=== PATIENT | female | born 1950 | race Caucasian/White ===

== ENCOUNTER 2018-08-06 11:31 | Observation (INO) | payer MEDICARE, OTHER, SELFPAY ==
[2018-08-06] VITALS (8 sets, daily range): BP systolic 135–159; BP diastolic 62–84; PULSE 60–90; RESP 16–17; TEMP 36.6–37.3; O2SAT 95–100; BMI 31.6; BMI 29.0
--- NOTE | 2018-08-06 11:43 | US_ITS ---
STUDY: ABDOMINAL ULTRASOUND - RIGHT UPPER QUADRANT REASON FOR VISIT: Female, 67 years old. Abdominal pain. History of cholelithiasis. TECHNIQUE: Ultrasound evaluation of the right upper quadrant was performed with real-time and static willis-scale imaging. TECHNICAL QUALITY: Adequate. COMPARISON: None. FINDINGS: Liver: The liver measures 17.5 cm. There is increased echogenicity consistent with fatty infiltration. The bile ducts are within normal limits. There is hepatic color flow. The direction of portal flow is hepatopetal. There is no demonstrated mass lesion. Gallbladder: Normal distended gallbladder. The gallbladder wall measures 3.2 mm. There is a positive sonographic Young's sign. There is no pericholecystic fluid. There are multiple echogenic structures within the gallbladder, consistent with multiple gallstones. There is sludge. Common Bile Duct (C.B.D.): The common bile duct measures 7 mm. Pancreas: Normal size of the head, body and tail of the pancreas. There is normal echogenicity of the pancreas. There is no demonstrated pancreatic mass or cyst. Right Kidney: Normal size of the right kidney. The right kidney measures 10.2 cm. Normal renal cortex. The right cortex measures 2.0 cm. There is no demonstrated renal mass or cyst. There is no right hydronephrosis. US/Gallbladder IMPRESSION: Gallstones and positive Young's sign with a slightly thickened gallbladder wall. Findings are consistent with cholecystitis. Mildly dilated common bile duct. Electronically Signed: Harish Gonzalez MD at 13:16 EST , Service support ,
[2018-08-06] MEDS: Morphine 4 MG/ML Syringe IV ×2 (11:59→13:51)
[2018-08-06] MEDS: 0.9% Normal Saline 1,000 ML 1000 ML IV (11:59)
[2018-08-06] MEDS: Ondansetron 4 MG/2 ML Vial IV (11:59)
[2018-08-06 12:00] LABS: Absolute Lymphocyte Count 0.78 X10^3/ul (0.83-4.51); Absolute Neutrophil Count 13.5 X10^3/uL (2.0-7.7); Basophil# 0.03 X10^3/uL; Basophil% 0.2 % (0-1); Hematocrit 40.9 % (37-47); Hemoglobin 13.9 g/dl (12.0-15.0); Lymphocyte # 0.78 X10^3/ul (4.0); Lymphocyte % 5.1 % (19-41); Mean Corpuscular Hgb 29.8 pg (27.0-32.0); Mean Corpuscular Volume 87.8 fL (81-99); Monocyte# 0.87 X10^3/uL; Monocyte% 5.7 % (0-10); Neutrophil % 88.9 % (47-70); Platelet Count 303 K/mm3 (150-450); RBC Distribution Width CV 12.6 % (11.6-14.6); RBC Distribution Width SD 40.4 fl (35.1-43.9); Red Blood Count 4.66 M/mm3 (4.2-5.4); White Blood Count 15.2 K/mm3 (4.4-11.0)
[2018-08-06 12:02] LABS: POSITIVE COUNT NO; POSITIVE DIFFERENTIAL NO; POSITIVE MORPHOLOGY NO
[2018-08-06 12:15] LABS: AST(SGOT) 14 U/L (15-37); Alanine Aminotransfer ALT/SGPT 23 U/L (13-56); Albumin, Serum 3.8 g/dL (3.2-5.0); Alkaline Phosphatase 77 U/L (45-117); Anion Gap 10 (5-15); BUN 9 mg/dL (7-18); BUN/Creat Ratio 11.8 RATIO (10-20); Calcium,Total 8.7 mg/dL (8.5-10.1); Chloride 102 mmol/L (98-107); Creatinine, Serum 0.76 mg/dL (0.55-1.02); EST Glomerular Filtration Rate 80 mL/min (>60); Est Glom Filt Rate - Afr Amer 97 mL/min (>60); Estimated Creatinine Clearance 48.45 ml/min; Globulin 3.5 g/dL (2.2-4.2); Glucose 156 mg/dL (74-106); Lipase 297 U/L (73-393); Potassium 3.9 mmol/L (3.5-5.1); Protein, Total 7.3 g/dL (6.4-8.2); Sodium Level 136 mmol/L (136-145)
--- NOTE | 2018-08-06 12:18 | ED.VISSUMM ---
- ER Visit Summary Date of Service: 08/06/18 Chief Complaint: Abdominal pain, nausea, vomiting History of Present Illness: The patient is a 67 F who is otherwise healthy presents to the emergency department with midepigastric pain into her right upper quadrant along with nausea and vomiting. The patient does have a history of gallstones. She states that she was diagnosed with these in May. She was seen at [facility]. She states that she changed her diet and has not had to have any surgery. She states last night, she was eating a cheddar popcorn. Her also ate it. She states shortly after, they were both nauseated. She states her symptoms worsen and she had more pain. She began to vomit and states that she is vomited approximately 10 times. It was nonbloody and nonbilious. The patient is otherwise healthy. She takes no daily medications. She has had prior hysterectomy, but no other abdominal surgery. Physical Examination: Vital signs reviewed General: Well-nourished, well-developed Head: Normocephalic, atraumatic Eyes: Pupils equal and reactive, extraocular muscles intact Neck, supple, no lymphadenopathy Heart: Regular rate and rhythm Respiratory: No distress, clear bilaterally Abdomen: Soft, nontender, nondistended, no peritoneal signs Back: Nontender Extremities: Nontender, no edema, no cords Skin: Normal color no rash Neuro: Alert and oriented, no focal or lateralizing deficits Test Results: [] Emergency Department Course and Treatment: The patient presents with midepigastric pain in the right upper quadrant. She was tender to palpation. IV was established. She was given analgesics and antiemetics with some improvement, but still had persistent symptoms. Screening labs do demonstrate a leukocytosis, but her LFTs were normal. Patient underwent ultrasound which is concerning for acute cholecystitis. I did discuss the patient with Dr. Gomez. She will evaluate the patient for admission in the emergency department. The patient was covered with broad-spectrum antibiotics and redosed with analgesics. Treatment Plan: [] Disposition: Admission Impression: 1. Acute cholecystitis This note was generated with [employer] dictation software. It may contain incorrect words, spelling, and punctuation that were not noted in review of the chart prior to signing ED Disposition - Plan for ED Patient: Chief Complaint: Abd Pain Referrals: Reynold Gu [Primary Care Provider] -
--- NOTE | 2018-08-06 13:25 | RAD_ITS ---
STUDY: X-RAY CHEST REASON FOR EXAM: Female, 67 years old. Right upper quadrant pain. TECHNIQUE: Single frontal view of the chest. COMPARISON: None. FINDINGS: The lungs are mildly hyperexpanded. There is no demonstrated pleural abnormality. There is borderline cardiomegaly. Normal mediastinum and go. Normal visualized pulmonary arteries. Normal visualized aortic arch and descending thoracic aorta. Normal visualized thoracic spine. Normal visualized ribs, clavicles, and shoulders. There is no demonstrated abnormality of the visualized soft tissue structures of the upper abdomen. RAD/Chest 1 View (Portable) IMPRESSION: Borderline cardiomegaly with mild hyperexpansion. No acute pathology. Electronically Signed: Aren Mcfarland MD at 14:11 EST , Service support ,
--- NOTE | 2018-08-06 13:25 | EKG12_ITS ---
Test Reason : PRE-OP Blood Pressure : / mmHG Vent. Rate : 070 BPM Atrial Rate : 070 BPM P-R Int : 148 ms QRS Dur : 094 ms QT Int : 398 ms P-R-T Axes : 058 -48 034 degrees QTc Int : 429 ms Normal sinus rhythm Left anterior fascicular block Poor R wave progression Minimal voltage criteria for LVH, may be normal variant Abnormal ECG Confirmed by MARILYN LAUGHLIN, ÁNGELA ([id number]), society editor HORACIO FORTE ([id number]) on 08/08/2018 12:40:45 PM Referred By: STEVIE Confirmed By:ÁNGELA SANDERS MD
[2018-08-06 13:43] LABS: International Normalized Ratio 0.9; Prothrombin Time (Protime)PT. 12.6 SECONDS (11.7-14.9)
--- NOTE | 2018-08-06 13:58 | PCM.HP.STD ---
History of Present Illness Date of Admission: 08/06/18 The patient is a 67 year old F presented to the ER due to nausea vomiting right upper quadrant pain that started about 8 PM last night after eating some popcorn. Patient states the pain continued to get worse. In the ER patient had a white blood cell count of 15.2, ultrasound the gallbladder did show some wall thickening at 3.2 mm their official reports there is no pericholecystic fluid however I do think there is some pericholecystic fluid on the ultrasound, multiple gallstones. Patient last ate last night along with having a bowel movement last night which was normal. Patient did know that she had gallstones however she has not had an issue with them previously. Patient denies any past medical history or any medications at home. 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 Lives: Spouse/ Significant Other Smoking Status: Never smoker - *Family History Maternal History Items: No pertinent history Review of Systems Constitutional: Reports: Anorexia, Chills Eyes: Denies: Blurred vision HEENT: Denies: Difficulty Swallowing Cardiovascular: Denies: Chest Pain Respiratory: Denies: Shortness of breath at rest Gastrointestinal: Reports: Abdominal Pain, Nausea, Vomiting Genitourinary: Denies: Dysuria VTE Information - Inpt Only VTE Present on Admission: Yes VTE Mechan Device Prophylaxis: SCD's - Physical Exam General: Alert, Oriented x3, Cooperative, No apparent distress HEENT: Atraumatic Lungs: Normal air movement Cardiovascular: Regular rate Abdomen: Soft, Non-Distended, Tender - Right upper quadrant, no peritoneal signs Extremities: No clubbing, No cyanosis, No edema Neurological: Cranial nerves II-XII grossly intact Psych/Mental Status: Normal Affect Vital Signs Temp Pulse Resp BP Pulse Ox 98.1 F 90 17 159/84 H 100 08/06/18 11:32 08/06/18 11:32 08/06/18 11:32 08/06/18 11:32 08/06/18 11:32 Oxygen Delivery Method Room Air Weight: 190 lb Body Mass Index (BMI) 31.6 Laboratory Tests Past 24 Hrs 12/08/06/18 08/06/18 11:53 11:53 11:53 WBC 15.2 H RBC 4.66 Hgb 13.9 Hct 40.9 MCV 87.8 MCH 29.8 MCHC 34.0 RDW 12.6 RDW Differential 40.4 Plt Count 303 MPV 10.0 Immature Gran % (Auto) 0.100 Neut % (Auto) 88.9 H Lymph % (Auto) 5.1 L [place] % (Auto) 5.7 Eos % (Auto) 0.0 Baso % (Auto) 0.2 Absolute Neuts (auto) 13.5 H Absolute Lymphs (auto) 0.78 L Total Counted Not Reportable PT 12.6 INR 0.9 APTT 29.0 Sodium 136 Potassium 3.9 Chloride 102 Carbon Dioxide 24.0 Anion Gap 10 BUN 9 Creatinine 0.76 Estim Creat Clear Calc 48.45 Est GFR (MDRD) Af Amer 97 Est GFR (MDRD) Non-Af 80 BUN/Creatinine Ratio 11.8 Glucose 156 H Calcium 8.7 Total Bilirubin 0.80 Direct Bilirubin 0.20 AST 14 L ALT 23 Alkaline Phosphatase 77 Total Protein 7.3 Albumin 3.8 Globulin 3.5 Lipase 297 Assessment/Plan 67-year-old female with acute cholecystitis 1. Discussed procedure laparoscopic cholecystectomy with cholangiograms, possible open along with the risk but not limited to bleeding, infection, bile leak/retained stones which would require an ERCP, injury to another organ (small bowel, bile ducts, etc.) which may require transfer to tertiary hospital, hernia at incision sites, and anesthesia. Patient and her no further questions at this time. Sheri Gomez M.D. Pager: [phone] [facility] [address] [place] [address], [address] [place] [address] Office: [phone]
--- NOTE | 2018-08-06 14:02 | HP.PCM_ITS ---
History of Present Illness Date of Admission: 08/06/18 The patient is a 67 year old F presented to the ER due to nausea vomiting right upper quadrant pain that started about 8 PM last night after eating some popcorn. Patient states the pain continued to get worse. In the ER patient had a white blood cell count of 15.2, ultrasound the gallbladder did show some wall thickening at 3.2 mm their official reports there is no pericholecystic fluid however I do think there is some pericholecystic fluid on the ultrasound, multiple gallstones. Patient last ate last night along with having a bowel movement last night which was normal. Patient did know that she had gallstones however she has not had an issue with them previously. Patient denies any past medical history or any medications at home. 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 Lives: Spouse/ Significant Other Smoking Status: Never smoker - *Family History Maternal History Items: No pertinent history Review of Systems Constitutional: Reports: Anorexia, Chills Eyes: Denies: Blurred vision HEENT: Denies: Difficulty Swallowing Cardiovascular: Denies: Chest Pain Respiratory: Denies: Shortness of breath at rest Gastrointestinal: Reports: Abdominal Pain, Nausea, Vomiting Genitourinary: Denies: Dysuria VTE Information - Inpt Only VTE Present on Admission: Yes VTE Mechan Device Prophylaxis: SCD's - Physical Exam General: Alert, Oriented x3, Cooperative, No apparent distress HEENT: Atraumatic Lungs: Normal air movement Cardiovascular: Regular rate Abdomen: Soft, Non-Distended, Tender - Right upper quadrant, no peritoneal signs Extremities: No clubbing, No cyanosis, No edema Neurological: Cranial nerves II-XII grossly intact Psych/Mental Status: Normal Affect Vital Signs Temp Pulse Resp BP Pulse Ox 98.1 F 90 17 159/84 H 100 08/06/18 11:32 08/06/18 11:32 08/06/18 11:32 08/06/18 11:32 08/06/18 11:32 Oxygen Delivery Method Room Air Weight: 190 lb Body Mass Index (BMI) 31.6 Laboratory Tests Past 24 Hrs 12/08/06/18 08/06/18 11:53 11:53 11:53 WBC 15.2 H RBC 4.66 Hgb 13.9 Hct 40.9 MCV 87.8 MCH 29.8 MCHC 34.0 RDW 12.6 RDW Differential 40.4 Plt Count 303 MPV 10.0 Immature Gran % (Auto) 0.100 Neut % (Auto) 88.9 H Lymph % (Auto) 5.1 L [place] % (Auto) 5.7 Eos % (Auto) 0.0 Baso % (Auto) 0.2 Absolute Neuts (auto) 13.5 H Absolute Lymphs (auto) 0.78 L Total Counted Not Reportable PT 12.6 INR 0.9 APTT 29.0 Sodium 136 Potassium 3.9 Chloride 102 Carbon Dioxide 24.0 Anion Gap 10 BUN 9 Creatinine 0.76 Estim Creat Clear Calc 48.45 Est GFR (MDRD) Af Amer 97 Est GFR (MDRD) Non-Af 80 BUN/Creatinine Ratio 11.8 Glucose 156 H Calcium 8.7 Total Bilirubin 0.80 Direct Bilirubin 0.20 AST 14 L ALT 23 Alkaline Phosphatase 77 Total Protein 7.3 Albumin 3.8 Globulin 3.5 Lipase 297 Assessment/Plan 67-year-old female with acute cholecystitis 1. Discussed procedure laparoscopic cholecystectomy with cholangiograms, possible open along with the risk but not limited to bleeding, infection, bile leak/retained stones which would require an ERCP, injury to another organ (small bowel, bile ducts, etc.) which may require transfer to tertiary hospital, hernia at incision sites, and anesthesia. Patient and her no further questions at this time. Sheri Gomez M.D. Pager: [phone] [facility] [address] [place] [address], [address] [place] [address] Office: [phone]
[2018-08-06 14:27] LABS: Bacteria 0 SEEN /hpf (None Seen); Mucous, Urine 0 SEEN /hpf (<or=2+)
[2018-08-06 14:28] LABS: Color, Urine Yellow (Yellow); Glucose, Dipstick Normal (Normal); Ketone-Dipstick 50 mg/dl (Negative); Leukocyte Esterase-Dipstick Negative /ul (Negative); Nitrite-Dipstick Negative (Negative); Occult Blood-Urine 10 /ul (Negative); Protein-Dipstick 15 mg/dl (Negative); Specific Gravity, Urine 1.015 (1.002-1.030); Urine Bilirubin Dipstick Negative (Negative); Urine Clarity Clear (Clear); Urine Urobilinogen Normal (Normal)
[2018-08-06 14:41] LABS: Red Blood Cells-Urine 0-5 SEEN /hpf (0-5); Squamous Epithelial Cells - UA 0-5 SEEN /hpf (5-10); White Blood Cells 0-5 SEEN /hpf (0-5)
--- NOTE | 2018-08-06 15:00 | GALL_PTH ---
PATIENT: ELAINA DE LA TORRE LOC: MS3 U#:[id number] AGE/SX: 67/F ROOM: RI306 RE08/06/[address]: Dr. Sheri Gomez MD : 1950 BED: 1 DIS: 08/07/2018 SPEC #: [id number] RECD: 08/08/18 10:30 STATUS: INEZ RESandy #: [id number] MARIALUISA: 08/06/18 15:[address]: Sheri Gomez DEPT: SURGICAL PATHOLOGY RECD BY: John Sanchez ENTERED: 08/08/18 11:54 SP TYPE: RUSS SHORT DR: Dr. Reynold Gu DO Tissues: Gallbladder, NOS Procedures: Surgery Specimen Level III HEADER OPERATION: Laparoscopic cholecystectomy with IOC PRE-OP DIAGNOSIS: Acute cholelithiasis TISSUE SUBMITTED: Gallbladder MICROSCOPIC DIAGNOSIS Gallbladder: Acute and chronic ulcerated cholecystitis and cholelithiasis. Mild epithelial atypia, favor reactive. SJ:tiffanie 08/10/18 COMMENT Case has been reviewed in consultation with Dr. Estrada who concurs with the above diagnosis. IDC:AM MICROSCOPIC DESCRIPTION Slides are reviewed. GROSS DESCRIPTION Received is one container labeled with the patient's name and designated gallbladder. The specimen consists of a gallbladder measuring 10 x 4 x 3.5 cm. The external surface is smooth and glistening. Focally, it is granular, hemorrhagic and contains cautery artifact. The lumen of the gallbladder contains yellow-green mucoid bile and three salazar-black stones ranging in size from 0.7 to 1.5 cm. The mucosa is bile-stained and without any mass lesions. The gallbladder wall averages 0.3 cm in thickness and is free of mass lesions. Metal Cabinet Finisher sections of the gallbladder and the cystic duct are submitted in one cassette. / AM:tiffanie 08/08/18 More sections are submitted in three more cassettes, 2-4. / SJ:tiffanie 08/10/18 TC:2 CPT: 32888
[2018-08-06] MEDS: Bupivacaine 0.5% PF 10 ML VIAL (16:13)
--- NOTE | 2018-08-06 16:17 | PCM.OPRPT ---
Report of Operation Date of Procedure: 08/06/18 Pre-Operative Diagnosis: Acute cholecystitis Post-Operative Diagnosis: Acute cholecystitis, hydrops of the gallbladder Surgery/Procedure Performed:: Laparoscopic cholecystectomy Type of Anesthesia:: General/Supplemental Anesthesiologist: Rhoda Pride Special Medications: Zosyn 4.5 g IV x1 Specimen's removed: Gallbladder and stones Estimated Blood Loss (mL): <40cc Fluids Replaced: 1000 cc Description of Procedure: Indications this is a 67 year-old female who developed abdominal pain/nausea/vomiting and on workup was found to have cholelithiasis, acute cholecystitis with a normal liver function enzymes. Laparoscopic cholecystectomy was elected. Description procedure: The patient was placed on operating table in supine position. General Anesthesia was induced. A timeout was completed verifying correct patient, procedure, site, position, social, and special equipment prior to beginning procedure. An orogastric tube was placed. The abdomen was prepped and draped in usual sterile fashion. An incision was made in the natural skin line above the umbilicus. The fascia was elevated and incised. The peritoneum was elevated and incised. Entry into the peritoneum was confirmed visually and no bowel was noted in the vicinity of the incision. Meredith trocar was placed. The abdomen was insufflated with carbon dioxide to a pressure of 12-15 mmHg. Patient tolerated insufflation well. The laparoscope was then inserted and abdomen inspected. No injuries from initial trocar placement were noted. Additional trochars were then inserted in the following locations 5 mm trocar in the epigastrium and 2 more 5 mm trochars along the right costal margin. The abdomen was inspected no abnormalities were found. The table is placed in reverse Trendelenburg position with the right side up. The gallbladder was noted to be very tense and was decompressed with a decompression needle. White fluid was suctioned from the gallbladder. The adhesions between the gallbladder and omentum were removed with gentle traction as the gallbladder did have a bit of edema surrounding. The dome of the gallbladder was grasped with atraumatic grasper passed through the lateral port and retracted over the dome of the liver. Infundibulum was then grasped with atraumatic grasper through the midclavicular port and retracted to the right lower quadrant. This maneuver exposed Calot's triangle. The peritoneum overlying the gallbladder infundibulum was then incised and cystic duct and artery identified and circumferentially dissected. Unable to do cholangiograms Dominguez catheter due to a stone at the neck of the gallbladder, also unable to place a Ranfac catheter cholangiograms were not completed. But the cystic duct and artery were clearly identified. The cystic duct and artery were then doubly clipped and divided close to the gallbladder. The gallbladder then dissected from its peritoneal attachments by electrocautery. Hemostasis was checked and the gallbladder and contained stones were removed using the endoscopic retrieval bag through the umbilical port. The gallbladder is passed off table as specimen. The gallbladder fossa was copiously irrigated with saline and hemostasis obtained. There is no evidence of bleeding from the gallbladder fossa or cystic artery leakage of bile from the cystic duct stump. Secondary trochars removed under direct vision. No bleeding was noted the trocar sites. The laparoscope was withdrawn and umbilical trocar removed. The abdomen was allowed to collapse. The fascia of the 12 mm trocar was closed with a [id number] 0 Vicryl suture. The skin was closed with sutures of 4-0 Monocryl and Steri-Strips. The orogastric tube was removed and the patient was extubated. The patient tolerated procedure well and was taken to the postanesthesia care unit in stable condition. - Complications none - Admit VTE Documentation VTE Present on Admission: Yes VTE Mechan Device Prophylaxis: SCD's VTE Pharm Prophylaxis ordered?: No Reason prophylaxis not ordered:: Treatment Not Indicated
[2018-08-06] MEDS: Lactated Ringers 1,000 ML 130 ML IV (19:05)
[2018-08-06] MEDS: Piperacil/Tazobactam 3.375 GM/50 ML ML IV (22:02)
[2018-08-07] MEDS: Lactated Ringers 1,000 ML 130 ML IV (02:47)
[2018-08-07] MEDS: HYDROcodone Bitartrate/Apap 5/325 Tablet PO (02:49)
[2018-08-07] MEDS: Piperacil/Tazobactam 3.375 GM/50 ML ML IV (05:42)
[2018-08-07 06:42] LABS: Absolute Lymphocyte Count 0.95 X10^3/ul (0.83-4.51); Absolute Neutrophil Count 9.9 X10^3/uL (2.0-7.7); Basophil# 0.01 X10^3/uL; Basophil% 0.1 % (0-1); Hematocrit 34.9 % (37-47); Hemoglobin 11.7 g/dl (12.0-15.0); Lymphocyte # 0.95 X10^3/ul (4.0); Lymphocyte % 7.8 % (19-41); Mean Corp Hgb Conc 33.5 g/gl (32-36); Mean Corpuscular Hgb 30.8 pg (27.0-32.0); Mean Corpuscular Volume 91.8 fL (81-99); Mean Platelet Vol. 11.2 fl (6.2-12.0); Monocyte# 1.28 X10^3/uL; Monocyte% 10.6 % (0-10); Neutrophil # 9.86 X10^3/uL (2.7-7.7); Neutrophil % 81.3 % (47-70); Platelet Count 238 K/mm3 (150-450); RBC Distribution Width CV 12.5 % (11.6-14.6); White Blood Count 12.1 K/mm3 (4.4-11.0)
[2018-08-07 06:48] LABS: POSITIVE COUNT NO; POSITIVE DIFFERENTIAL NO; POSITIVE MORPHOLOGY NO
[2018-08-07 07:07] LABS: ALB/GLOB Ratio 0.9 RATIO (0.9-2.4); AST(SGOT) 40 U/L (15-37); Alanine Aminotransfer ALT/SGPT 44 U/L (13-56); Albumin, Serum 2.7 g/dL (3.2-5.0); Alkaline Phosphatase 52 U/L (45-117); Anion Gap 7 (5-15); BUN 10 mg/dL (7-18); BUN/Creat Ratio 13.6 RATIO (10-20); Chloride 106 mmol/L (98-107); Creatinine, Serum 0.74 mg/dL (0.55-1.02); EST Glomerular Filtration Rate 83 mL/min (>60); Est Glom Filt Rate - Afr Amer 101 mL/min (>60); Estimated Creatinine Clearance 58.23 ml/min; Globulin 2.9 g/dL (2.2-4.2); Glucose 138 mg/dL (74-106); Potassium 4.5 mmol/L (3.5-5.1); Protein, Total 5.6 g/dL (6.4-8.2); Sodium Level 140 mmol/L (136-145)
[2018-08-07 07:25] VITALS: O2SAT 96
--- NOTE | 2018-08-07 07:39 | PN.SURG_ITS ---
Subjective: Patient is doing well, denies right upper quadrant pain like she had before surgery just has some tenderness near incisions, tolerating clears, ambulate to the bathroom, denies flatus - Physical Exam General: Alert, Oriented x3, Cooperative, No apparent distress HEENT: Atraumatic Lungs: Normal air movement Cardiovascular: Regular rate Abdomen: Soft, Non-Distended, Tender - Mild near incisions, dressed clean dry and intact Extremities: No clubbing, No cyanosis, No edema Vital Signs Temp Pulse Resp BP Pulse Ox 99.1 F 87 16 136/62 H 95 08/06/18 21:00 08/06/18 21:00 08/06/18 21:00 08/06/18 21:00 08/06/18 21:00 Oxygen Delivery Method Room Air Weight: 201 lb 15.095 oz Body Mass Index (BMI) 29.0 Intake and Output for Last 24 Hours 08/05/18 08/06/18 08/07/18 23:59 23:59 23:59 Intake Total 1700 / 1700 1980.7 / 1980.7 Output Total 1125 / 1125 Balance 1700 / 1700 855.7 / 855.7 Laboratory Tests Past 24 Hrs 08/06/18 08/06/18 08/06/18 11:53 11:53 11:53 WBC 15.2 H RBC 4.66 Hgb 13.9 Hct 40.9 MCV 87.8 MCH 29.8 MCHC 34.0 RDW 12.6 RDW Differential 40.4 Plt Count 303 MPV 10.0 Immature Gran % (Auto) 0.100 Neut % (Auto) 88.9 H Lymph % (Auto) 5.1 L [place] % (Auto) 5.7 Eos % (Auto) 0.0 Baso % (Auto) 0.2 Absolute Neuts (auto) 13.5 H Absolute Lymphs (auto) 0.78 L Total Counted Not Reportable PT 12.6 INR 0.9 APTT 29.0 Sodium 136 Potassium 3.9 Chloride 102 Carbon Dioxide 24.0 Anion Gap 10 BUN 9 Creatinine 0.76 Estim Creat Clear Calc 48.45 Est GFR (MDRD) Af Amer 97 Est GFR (MDRD) Non-Af 80 BUN/Creatinine Ratio 11.8 Glucose 156 H Calcium 8.7 Total Bilirubin 0.80 Direct Bilirubin 0.20 AST 14 L ALT 23 Alkaline Phosphatase 77 Total Protein 7.3 Albumin 3.8 Globulin 3.5 Albumin/Globulin Ratio Lipase 297 Urine Color Urine Clarity Urine pH Ur Specific [place] Urine Protein Urine Glucose (UA) Urine Ketones Urine Occult Blood Urine Nitrite Urine Bilirubin Urine Urobilinogen Ur Leukocyte Esterase Urine RBC Urine WBC Ur Squamous Epith Cells Urine Bacteria Urine Mucus Blood Type Antibody Screen 08/06/18 08/06/18 08/07/18 13:56 14:20 06:00 WBC 12.1 H RBC 3.80 L Hgb 11.7 L Hct 34.9 L MCV 91.8 MCH 30.8 MCHC 33.5 RDW 12.5 RDW Differential 41.0 Plt Count 238 MPV 11.2 Immature Gran % (Auto) 0.200 Neut % (Auto) 81.3 H Lymph % (Auto) 7.8 L [place] % (Auto) 10.6 H Eos % (Auto) 0.0 Baso % (Auto) 0.1 Absolute Neuts (auto) 9.9 H Absolute Lymphs (auto) 0.95 Total Counted Not Reportable PT INR APTT Sodium Potassium Chloride Carbon Dioxide Anion Gap BUN Creatinine Estim Creat Clear Calc Est GFR (MDRD) Af Amer Est GFR (MDRD) Non-Af BUN/Creatinine Ratio Glucose Calcium Total Bilirubin Direct Bilirubin AST ALT Alkaline Phosphatase Total Protein Albumin Globulin Albumin/Globulin Ratio Lipase Urine Color Yellow Urine Clarity Clear Urine pH 7.0 Ur Specific [place] 1.015 Urine Protein 15 H Urine Glucose (UA) Normal Urine Ketones 50 H Urine Occult Blood 10 H Urine Nitrite Negative Urine Bilirubin Negative Urine Urobilinogen Normal Ur Leukocyte Esterase Negative Urine RBC 0-5 SEEN Urine WBC 0-5 SEEN Ur Squamous Epith Cells 0-5 SEEN Urine Bacteria 0 SEEN Urine Mucus 0 SEEN Blood Type A POSITIVE Antibody Screen NEGATIVE 08/07/18 06:00 WBC RBC Hgb Hct MCV MCH MCHC RDW RDW Differential Plt Count MPV Immature Gran % (Auto) Neut % (Auto) Lymph % (Auto) [place] % (Auto) Eos % (Auto) Baso % (Auto) Absolute Neuts (auto) Absolute Lymphs (auto) Total Counted PT INR APTT Sodium 140 Potassium 4.5 Chloride 106 Carbon Dioxide 27.0 Anion Gap 7 BUN 10 Creatinine 0.74 Estim Creat Clear Calc 58.23 Est GFR (MDRD) Af Amer 101 Est GFR (MDRD) Non-Af 83 BUN/Creatinine Ratio 13.6 Glucose 138 H Calcium 8.0 L Total Bilirubin 0.70 Direct Bilirubin AST 40 H ALT 44 Alkaline Phosphatase 52 Total Protein 5.6 L Albumin 2.7 L Globulin 2.9 Albumin/Globulin Ratio 0.9 Lipase Urine Color Urine Clarity Urine pH Ur Specific [place] Urine Protein Urine Glucose (UA) Urine Ketones Urine Occult Blood Urine Nitrite Urine Bilirubin Urine Urobilinogen Ur Leukocyte Esterase Urine RBC Urine WBC Ur Squamous Epith Cells Urine Bacteria Urine Mucus Blood Type Antibody Screen Medical Necessity - Tobacco Use Smoking Status: Never smoker Assessment/Plan 67-year-old female with acute cholecystitis status post laparoscopic cholecystectomy 1. Advance to regular diet 2. Ambulate halls 3. Continue pain control 4. We will stop Zosyn, if continues to do well will DC home plan to follow-up in 2 weeks. Sheri Gomez M.D. Pager: [phone] [facility] [address] [place] [address], [address] [place] [id number] Office: [phone]
--- NOTE | 2018-08-07 07:39 | PCM.DC.GB ---
Discharge Diet: Light diet - advance as tolerated Discharge Activity: May not drive while taking narcotic pain medications. May shower in (days): 1 Lifting Restrictions: no lifting > 20 lb for 4 weeks, no strenous exercise for 8 weeks Call your doctor if your incision/area has: Continuous Slow Oozing, Sudden Increased Bleeding, Increased Pain/ Swelling, Increased Redness, Foul Smelling Discharge, Swelling at the incision site Call your doctor if you observe: Fever of 101 or Higher Remove Dressing in (days):: 1 - Okay to remove the OpSite today, keep steroids on until they fall off and less they do not follow-up in 10 days Additional Instructions: Okay to take ibuprofen 400-600 mg PO q6hr PRN along with the Vicodin. Avoid Tylenol since there is already Tylenol in the Vicodin. Take all pain meds with food. Vicodin can cause constipation recommend taking daily stool softener (i.e. Colace/docusate) while taking the pain meds. Recommend starting some MiraLAX if no bowel movement in 1-2 days. If still no bowel movement the following day after taking MiraLAX recommend taking magnesium citrate half the bottle and waiting 4-6 hours if still no results take the other half the bottle. Allergies/Adverse Reactions: Allergies No Known Allergies Allergy (Verified 08/06/18 11:32) Medications to take at Discharge Hydrocodone Bitart/Apap 5-325 [[place] 5MG-325MG] 1 - 2 tablet PO Q6H PRN PRN 3 Days #15 tablet 08/07/18 The following prescriptions were given: Hydrocodone Bitart/Apap 5-325 [[place] 5MG-325MG] 1 - 2 tablet PO Q6H PRN PRN 3 Days #15 tablet PRN Reason: Pain Primary Care Physician: Reynold Gu [Primary Care Provider] - Test Results: Test results from this visit will be discussed in further detail at your follow-up appointment, if applicable. Please Follow Up With: Sheri Gomez MD - After 5 PM and on the weekends/holidays call [phone] with any concerns When: Call the office for an appointment in 2 weeks [phone] Proposed Discharge Date: 08/07/18
--- NOTE | 2018-08-07 07:42 | DCINST_ITS ---
Discharge Diet: Light diet - advance as tolerated Discharge Activity: May not drive while taking narcotic pain medications. May shower in (days): 1 Lifting Restrictions: no lifting > 20 lb for 4 weeks, no strenous exercise for 8 weeks Call your doctor if your incision/area has: Continuous Slow Oozing, Sudden Increased Bleeding, Increased Pain/ Swelling, Increased Redness, Foul Smelling Discharge, Swelling at the incision site Call your doctor if you observe: Fever of 101 or Higher Remove Dressing in (days):: 1 - Okay to remove the OpSite today, keep steroids on until they fall off and less they do not follow-up in 10 days Additional Instructions: Okay to take ibuprofen 400-600 mg PO q6hr PRN along with the Vicodin. Avoid Tylenol since there is already Tylenol in the Vicodin. Take all pain meds with food. Vicodin can cause constipation recommend taking daily stool softener (i.e. Colace/docusate) while taking the pain meds. Recommend starting some MiraLAX if no bowel movement in 1-2 days. If still no bowel movement the following day after taking MiraLAX recommend taking magnesium citrate half the bottle and waiting 4-6 hours if still no results take the other half the bottle. Allergies/Adverse Reactions: Allergies No Known Allergies Allergy (Verified 08/06/18 11:32) Medications to take at Discharge Hydrocodone Bitart/Apap 5-325 [[place] 5MG-325MG] 1 - 2 tablet PO Q6H PRN PRN 3 Days #15 tablet 08/07/18 The following prescriptions were given: Hydrocodone Bitart/Apap 5-325 [[place] 5MG-325MG] 1 - 2 tablet PO Q6H PRN PRN 3 Days #15 tablet PRN Reason: Pain Primary Care Physician: Reynold Gu [Primary Care Provider] - Test Results: Test results from this visit will be discussed in further detail at your follow- up appointment, if applicable. Please Follow Up With: Sheri Gomez MD - After 5 PM and on the weekends/holidays call [phone] with any concerns When: Call the office for an appointment in 2 weeks [phone] Proposed Discharge Date: 08/07/18
[2018-08-07 08:04] VITALS: BP 125/67; PULSE 58; RESP 18; TEMP 36.6; O2SAT 100
[2018-08-07 13:00] VITALS: BP 143/72; PULSE 59; RESP 18; TEMP 36.7; O2SAT 100
== END 2018-08-07 13:45 | disposition home or self-care (01) ==
LOC: ED 14:29 → SDC 14:47 → MS3 14:48 → SDC 16:56
PROVIDERS: Admitting Provider Surgery; Emergency Provider Emergency Medicine; Family Provider Family Medicine; PCP Family Medicine; Visit Provider Surgery
PROC: (CPT 47610; principal; 2018-08-06 15:00)
DX: K80.12 Calculus of gallbladder with acute and chronic cholecystitis without obstruction (principal); K82.1 Hydrops of gallbladder; R94.31 Abnormal electrocardiogram [ECG] [EKG]; I44.4 Left anterior fascicular block
CPT/HCPCS: 47562; 36415; 71045; 76705; 80048; 80053; 80076; 81001; 83690; 85025; 85610; 85730; 86850; 86900; 88304; 93005; 96361; 96365; 96366; 96375; 96376; 99218; 99282; J7030; J7040; J7120; A4216; G0378; J2405